=== PATIENT | female | born 1995 | race Two or more races ===

== ENCOUNTER 2016-12-08 07:30 | Emergency (ER) | payer OTHER ==
[~2016-12-08] VITALS: Ht 162.6 cm; Wt 50.8 kg
[2016-12-08] MEDS ORDERED: NKM (07:42)
[2016-12-08] MEDS ORDERED: ADULT WAL-100 MG/5 M ORAL (08:28)
[2016-12-08] MEDS ORDERED: CLARITIN10 M2 ORAL (08:28)
[2016-12-08] MEDS ORDERED: DuoNeb 0.5-3(2.5)mg/3ml neb HHN ONE (08:30)
[2016-12-08] MEDS ORDERED: ALBUTEROL SULF8.5 GM INH (09:07)
[2016-12-08 09:20] VITALS: BP 120/78
--- NOTE | 2016-12-08 14:28 | Emergency Room Report ---
History of Present Illness General Chief Complaint: Upper Respiratory Illness Source: Patient Present Illness HPI Patient is a 20-year-old female who presented after having increased cough and nasal discharge. The patient gradual onset of symptoms. Patient was noted to have a prior history of asthma. She denied any fever. Patient was having increased pain with coughing. She denied any pain without coughing. She had not been having any previous problems or asthma. Patient did not take any inhalers regularly. Allergies: Coded Allergies: No Known Allergies (Unverified , 12/08/16) Patient History Past Medical History: see triage record Last Menstrual Period: on period Reviewed Nursing Documentation: PMH: Agreed, PSxH: Agreed Nursing Documentation-PMH Past Medical History: No History, Except For Hx Asthma: Yes Review of Systems All Other Systems: negative except mentioned in HPI Physical Exam Vital Signs Date Time Temp Pulse Resp B/P Pulse Ox O2 Delivery O2 Flow Rate FiO2 12/08/16 07:37 98.2 62 14 122/81 99 12/08/16 07:50 Room Air General Appearance: well appearing, no apparent distress, alert, GCS 15 Head: normocephalic, atraumatic ENT: hearing grossly normal, normal voice Neck: full range of motion, supple Respiratory: chest non-tender, lungs clear, no respiratory distress, speaking full sentences Cardiovascular #1: normal inspection, regular rate, rhythm, no edema Gastrointestinal: normal inspection Musculoskeletal: normal inspection, back normal, digits/nails normal, no calf tenderness Neurologic: normal gait Psychiatric: mood/affect normal Skin: no rash Medical Decision Making Diagnostic Impression: Primary Impression: Seasonal allergies Additional Impression: Upper respiratory infection ER Course Patient presented for cough.Differential diagnosis included but was not limited to bronchitis, pneumonia, pulmonary embolism, pericarditis, asthma, foreign body. The patient was given breathing treatment with improvement in her symptoms The patient is advised to follow up with primary care doctor in 1-2 days. Patient is advised to return if any worsening condition or if any changes in status that are concerning. Last Vital Signs Date Time Temp Pulse Resp B/P Pulse Ox O2 Delivery O2 Flow Rate FiO2 12/08/16 09:20 98.2 78 16 120/78 100 Room Air Status: improved Disposition: HOME, SELF-CARE Condition: Stable Scripts Albuterol Sulfate* (ALBUTEROL SULFATE MDI*) 8.5 Gm Hfa.aer.ad 2 PUFF INH Q6H, #1 EA 0 Refills Prov: Tino Hudson 12/08/16 Guaifenesin* (ADULT WAL-TUSSIN*) 100 Mg/5 Ml Liquid 5 ML ORAL Q4H, #120 ML Prov: Tino Hudson 12/08/16 Loratadine (CLARITIN) 10 Mg Capsule 10 MG ORAL DAILY, #30 CAP Prov: Tino Hudson 12/08/16 Departure Forms: Return to Work Return to Work Date: Dec 11, 2016 Patient Instructions: Upper Respiratory Infection, Adult, Allergies Tino Hudson Dec 08, 2016 14:28
== END 2016-12-08 09:20 | disposition home or self-care (01) ==
LOC: EMR 08:25
DX: J30.2 Other seasonal allergic rhinitis (principal); J06.9 Acute upper respiratory infection, unspecified; J45.909 Unspecified asthma, uncomplicated
CPT/HCPCS: 94640; 94664; 99284; J7620